=== PATIENT | female | born 1980 | race African-American/Black ===

== ENCOUNTER → 2018-07-27 09:21 | Outpatient (CLI) | payer MEDICARE | END | disposition home or self-care (01) | LOC: D.CT 09:00 | PROVIDERS: ATTEND Surgery | DX: N18.6 End stage renal disease (principal) ==

== ENCOUNTER 2018-08-17 09:21 | Outpatient (CLI) | payer MEDICARE ==
[~2018-08-17] VITALS: Ht 172.7 cm; Wt 79.0 kg
--- NOTE | ~2018-08-17 | HEMODYNAMI ---
PATIENT:KOBY RIVERA MEDICAL RECORD: [id number] : 76 [facility]ATION:[facility] ADMISSION DATE: 08/17/18 Generatedon:08/17/201815:25 Patient name: KOBY RIVERA Patient #: [id number] SSN: Tomi OB: 1980 Date of study: 08/17/2018 Page: Of Hemodynamic Procedure Report Patient Data Patient Demographics Procedure consent was obtained First Name: KOBY Gender: Female Last Name: NICOLE : 1980 Patient #: [id number] Age: 38 year(s) Race: Black Additional ID: [id number] Contact details Address: [address] State: [facility] Zip code: [address] Past Medical History Allergies Allergen Reaction Date Comments Reported Other allergy 08/17/2018 BETADINE Admission Admission Data Admission Date: 08/17/2018 Admission Time: 9:21 Procedure Procedure Types Cath Procedure Peripheral Cath Diagnostic Procedure Abd/Extremity Extremities Left Upper Ext. Arteriogram Procedure Description Procedure Date Procedure Date: 08/17/2018 Procedure Start Time: 14:45 Procedure Staff Name Function Tu Stein RT Scrub Khai Lord MD Performing Physician Luda Magana RT Monitor Fátima Rosas RN Nurse Procedure Data Cath Procedure Fluoroscopy Diagnostic fluoroscopy Total fluoroscopy Time: 3.3 time: 3.3 min min Diagnostic fluoroscopy Total fluoroscopy dose: 37 dose: 37 mGy mGy Contrast Material Contrast Material Type Amount (ml) Isovue 300 30 Entry Location Entry Primary Successful Side Size Upsize Upsize Entry Closure Succes sful Closure Location (Fr) 1 (Fr) 2 (Fr) Remarks Device Remarks Femoral Right 5 Fr artery Diagnostic catheters Device Type Used For End Catheter Placement Carisa Melton 5FR. 100CM catheter ([id number]) Procedure Medications Medication Administration Route Dosage Heparin Flush Bag added to field 2 bags (1000units/500ml NS) Lidocaine 1% added to field 20 Fentanyl I.V. 50 mcg Versed I.V. 1 mg Hydralizine I.V. 10 mg Versed I.V. 1 mg Fentanyl I.V. 50 mcg Hydralizine I.V. 10 mg Hemodynamics Rest Heart Rate: 66 (bpm) Pressure Samples Time Site Value (mmHg) Purpose Heart Use Rate(bpm) 14:55 AO 277/115(175) Snapshot 68 Snapshots Pre Cath Intra NCS Post Cath Vital Signs Time Heart Resp SPO2 etCO2 NIBP (mmHg) Rhythm Pain Sedation Rate (ipm) (%) (mmHg) Status Level (bpm) 14:36:51 64 1 100 37.9 Measuring NSR 0 (11) 10(A) , No pain 14:38:16 64 100 37.9 Time NSR 0 (11) 10(A) Exceeded , No pain 14:41:03 64 5 99 37.9 241/112(169) NSR 0 (11) 9(A) , No pain 14:46:03 68 5 100 37.9 Measuring NSR 0 (11) 9(A) , No pain 14:47:00 69 18 100 36.4 230/102(167) NSR 0 (11) 9(A) , No pain 14:51:51 69 8 100 33.4 241/112(182) NSR 0 (11) 8(A) , No pain 14:56:50 63 6 100 39.4 Measuring NSR 0 (11) 8(A) , No pain 14:56:52 63 5 100 39.4 241/98(165) NSR 0 (11) 8(A) , No pain 15:01:41 60 0 41.6 213/91(145) NSR 0 (11) 8(A) , No pain 15:06:17 64 15 42.4 177/65(121) NSR 0 (11) 8(A) , No pain 15:10:37 66 11 41.6 144/65(111) NSR 0 (11) 8(A) , No pain 15:14:55 69 11 42.4 132/56(99) NSR 0 (11) 8(A) , No pain 15:19:15 68 12 99 42.3 134/51(85) NSR 0 (11) 8(A) , No pain 15:24:14 70 6 38 Measuring NSR 0 (11) 8(A) , No pain 15:24:49 69 5 43.9 134/54(91) NSR 0 (11) 8(A) , No pain Medications Time Medication Route Dose Verified Delivered Reason Notes Ef fectiveness by by 14:22:44 Heparin Flush added 2 Khai Ridley used for Bag to bags Pop Lord procedure (1000units/500ml field MD SLAUGHTER NS) 14:39:40 Lidocaine 1% added 20ml Khai Ridley for local to vial Pop Lord anesthetic field MD SLAUGHTER 14:51:33 Fentanyl I.V. 50 Khai Fátima used for mcg Pop Rosas RN procedure 14:51:45 Versed I.V. 1 mg Khai Fátima for sedation Pop Rosas RN, MD 14:54:32 Hydralizine I.V. 10 mg Khai Fátima for Pop blanc MD 15:03:45 Versed I.V. 1 mg Khai Fátima for sedation Pop Rosas RN, MD 15:03:57 Fentanyl I.V. 50 Khai Fátima for sedation mcg Pop Rosas RN, MD 15:04:32 Hydralizine I.V. 10 mg Khai Fátima for Pop blanc MD Procedure Log Time Note 14:08:32 Tu Stein RT (R) (CV) sent for patient. Start room use. 14:08:37 Time tracking: Regular hours (M-F 7:00 - 5:00) 14:08:43 Plan of Care:Hemodynamics will remain stable., Cardiac rhythm will remain stable., Comfort level will be maintained., Respiratory function will remain adequate., Patient/ family verbilizes understanding of procedure., Procedure tolerated without complication., Recovers from procedure without complications.. 14:08:49 Patient received from Outpatients to IR Alert and oriented. Tansferred to table in Supine position. 14:08:51 Correct patient and procedure confirmed by team. 14:08:53 Signed procedure consent form obtained from patient. 14:08:56 Full Disclosure recording started 14:08:57 ECG and BP/O2 sat monitors applied to patient. 14:09:01 - 14:09:05 H&P Date Dictated: 08/17/2018 H&P Addendum completed by physician on day of procedure. (MUST COMPLETE FOR ALL OUTPATIENTS). 14:09:06 Pre-procedure instructions explained to patient. 14:09:07 Pre-op teaching completed and patient verbalized understanding. 14:09:08 Family in waiting room. 14:09:10 Patient NPO since Midnight. 14:09:55 Patient allergic to Other allergyBETADINE 14:10:03 Is the patient allergic to Iodine/contrast media? No. 14:10:09 Is patient on blood thinner?No 14:10:10 Patient diabetic? Yes. 14:10:13 If diabetic: On Metformin? No 14:10:14 - 14:10:18 Use device set IR Diagnostic 14:10:19 ACIST Syringe (72814) opened to sterile field. 14:10:20 ACIST Hand Control (67754) opened to sterile field. 14:10:20 ACIST Manifold (08745) opened to sterile field. 14:10:20 Bag Decanter (2002) opened to sterile field. 14:10:21 Sterile Angiographic Pack opened to sterile field. 14:10:21 Tegaderm 4 x 4 (1626W) opened to sterile field. 14:10:27 - 14:10:28 ----Pre-sedation anethsthesia assessment.---- 14:10:33 Previous problem with sedation/anesthesia? No ? 14:10:37 Snore? Yes 14:10:39 Sleep apnea? Yes 14:10:40 Deviated septum? No 14:10:43 Opens mouth fully? Yes 14:10:44 Sticks out tongue? Yes 14:10:49 Airway obstruction? No ? 14:10:56 Dentures? Yes OUT 14:11:23 IV IN RT.FOOT NORMAL SALINE RUNNING KVO 14::27 Sharps counted by scrub and verified by R.N. 14:11:27 Alarms reviewed by R. N. 14:11:30 Right groin area was prepped with chlora-prep and draped in sterile fashion 14:22:44 Heparin Flush Bag (1000units/500ml NS) 2 bags added to field was administered by Khai Lord MD; used for procedure; 14:34:53 Pre procedure: right dorsailis pedis pulse 1+ Palpable, but thready & weak; easily obliterated 14:35:03 Vital chart was started 14:35:04 Baseline sample Acquired. 14:39:40 Lidocaine 1% 20ml vial added to field was administered by Khai joyner MD; for local anesthetic; 14:43:56 Physician arrived 14:43:57 --------ALL STOP TIME OUT------ 14:44:00 Final Timeout: patient, procedure, and site verified with staff and physician. All members of the team are in agreement. 14:44:52 Right groin site verified by team. 14:44:58 Sedation plan: IV Moderate Sedation Medication:Versed, Fentanyl 14:45:02 Fire Safety Assessment: A--An alcohol-based skin anteseptic being used preoperatively., C--Open oxygen or nitrous oxide is being used. 14:45:11 Procedure started. 14:45:14 Local anesthetic to right femoral artery with Lidocaine 1% by Tu Stein RT (R) (CV).INITIAL ACCESS ONLY 14:45:23 Access obtained with 4Fr micropunture. 14:45:33 A 5 Fr sheath was inserted into the Right Femoral artery 14:45:38 BENTSON 145cm wire ([id number]) opened to sterile field. 14:45:38 SHEATH 5FR [place] (PUV029) opened to sterile field. 14:45:39 Micropuncture VSI 4FR kit opened to sterile field. 14:45:41 A Carisa Pichardostein 5FR. 100CM catheter ([id number]) was advanced over the wire and used for . 14:45:42 TUBING Contrast Injection High Pressure (ZQG941V) opened to sterile field. 14:51:33 Fentanyl 50 mcg I.V. was administered by Fátima Rosas RN; used for procedure; 14:51:45 Versed 1 mg I.V. was administered by Fátima Rosas RN; for sedation; 14:54:32 Hydralizine 10 mg I.V. was administered by Fátima Rosas RN; for hypertension; 14:54:41 Zero performed for pressure channel P1 15:03:45 Versed 1 mg I.V. was administered by Fátima Rosas RN; for sedation; 15:03:57 Fentanyl 50 mcg I.V. was administered by Fátima Rosas RN; for sedation ; 15:04:32 Hydralizine 10 mg I.V. was administered by Fátima Rosas RN; for hypertension; 15:06:55 EXOSEAL 5Fr (EX500) opened to sterile field. 15:07:56 Procedure ended.(Physican Out) 15:09:18 Fluoroscopy time 03.30 minutes. 15:09:21 Flurop Dose total: 37 15:09:21 Fluoroscopy dose: 37 mGy 15:09:32 Contrast amount:Isovue 300 30ml. 15:09:33 Sharps counted by scrub and verified by R.N. 15:09:35 Insertion/operative site no bleeding no hematoma. 15:09:38 Post-op/insertion site Right Femoral artery dressed using a 4 x 4 and Tegaderm. 15:09:42 Post right femoral artery:stable 15:09:43 Post Procedure Pulses reassessed and unchanged 15:09:44 Patient needs reinforcement of post procedure teaching. 15:09:45 Procedure and supply charges have been captured, reviewed, submitted an d are correct. 15:25:02 Report given to Outpatients. 15:25:05 Patient transfered to Outpatients with Bed. 15:25:44 Vital chart was stopped Device Usage Item Name Manufacture Quantity Catalog Hospital Part Current Minima l Lot# / Number Charge Number Stock Stock Serial# Code ACIST Syringe Acist 1 08570 243341 817975 735334 20 (40206) NebuAd ACIST Hand Acist 1 20707 400467 140668 670866 5 Control Medical (77388) Systems Inc ACIST Acist 1 50690 018793 921154 664345 5 Manifold Medical (08796) Systems Inc Bag Decanter Microtek 1 2001S 266457 81765 039951 5 (2001S) Medical Inc. Sterile Cardinal 1 [id number] 024187 233315 5 Angiographic Health Pack Tegaderm 4 x 3M 1 1626W 352161 658901 602718 5 4 (1626W) BENTSON 145cm Cook Medical 1 P30480 174631 761783 5 wire (H65125) SHEATH 5FR Terumo 1 OSC168 417357 056098 115941 5 [place] (NRR493) Micropuncture VSI VASCULAR 1 7266V 669703 265365 5 VSI 4FR kit SOLUTIONS Merit Impress Merit 1 [id number] 347832 519657 5 Melton Medical 5FR. 100CM catheter ([id number]) TUBING Merit 1 [id number] 023054 885844 700531 5 Contrast Medical Injection High Pressure ([id number]) EXOSEAL 5Fr Cardinal 1 EX500 545849 883595 156937 10 [id number] (EX500) Health Signature Audit [place] Stage Time Signature Unsigned Intra-Procedure 08/17/2018 Tu 3:25:41 PM [place] RT (R) (CV) Signatures Monitor : Luda Signature : [place] RT Date : Time : [id number] [place] [address]
[2018-08-17 10:16] LABS: EOSINOPHILS 9.7 % (0-7); HEMATOCRIT 35.5 % (36.0-48.0); HEMOGLOBIN 11.3 g/dL (12-16); LYMPHOCYTES 28.9 % (15-50); MCH 29.5 pg (26.0-34.0); MCHC 31.8 g/dL (31.0-37.0); MCV 92.7 fL (80.0-100.0); MEAN PLATELET VOLUME 11.1 fL (7.4-10.4); MONOCYTES 6.7 % (2-11); NEUTROPHILS 53.7 % (40-80); PLATELET COUNT 118 10x3/uL (130-400); RBC 3.83 10x6/uL (4.00-5.40); RDW 16.3 % (11.5-14.5)
[2018-08-17 10:22] LABS: APTT 26.4 SECONDS (22.8-39.4); PROTIME 12.7 SECONDS (11.6-15.0)
[2018-08-17 10:40] LABS: ANION GAP 12.7 mmol/L (8-16); CALCIUM 8.9 mg/dL (8.5-10.1); CARBON DIOXIDE 28.4 mmol/L (21.0-32.0); CREATININE - SERUM 7.8 mg/dL (0.6-1.3); POTASSIUM - SERUM 4.1 mmol/L (3.5-5.1)
[2018-08-17] MEDS ORDERED: NORVASC5 MG PO (10:45)
[2018-08-17] MEDS ORDERED: CATAPRES0.1 MG PO (10:45)
[2018-08-17] MEDS ORDERED: RENAGEL800 MG PO (10:46)
[2018-08-17] MEDS ORDERED: LANTUS INSULIN10 ML SC (10:46)
[2018-08-17] MEDS ORDERED: HYDRALAZINE HCL50 MG PO (10:47)
[2018-08-17 11:02] VITALS: Ht 172.7 cm; Wt 79.0 kg
--- NOTE | 2018-08-17 15:37 | NUR ---
REC'D FROM SPECIALS. FAMILY AT BEDSIDE. DRESSING CDI TO RIGHT GROIN AND PULSES PALPABLE. LEMON IGIUGIG SODA AND FINGERFOOD TRAY BROUGHT TO PATIENT.
== END 2018-08-17 19:05 | disposition home or self-care (01) ==
LOC: D.SP 09:21 → D.RAD 10:00 → D.SP 19:05
PROVIDERS: Radiology Diagnostic Radiology; ATTEND Surgery
DX: I72.8 Aneurysm of other specified arteries (principal); N18.6 End stage renal disease; Z01.812 Encounter for preprocedural laboratory examination

== ENCOUNTER 2019-02-20 06:47 | Day surgery (SDC) | payer MEDICARE ==
[~2019-02-20] VITALS: Ht 172.7 cm; Wt 78.5 kg
[~2019-02-20 06:47] MED LIST: CATAPRES0.1 MG PO; HYDRALAZINE HCL50 MG PO; LANTUS INSULIN10 ML SC; NORVASC5 MG PO; RENAGEL800 MG PO
[2019-02-20 07:12] LABS: BASOPHILS 0.7 % (0-2); EOSINOPHILS 5.6 % (0-7); HEMATOCRIT 35.6 % (36.0-48.0); LYMPHOCYTES 32.8 % (15-50); MCH 28.9 pg (26.0-34.0); MCHC 30.9 g/dL (31.0-37.0); MCV 93.4 fL (80.0-100.0); MONOCYTES 10.5 % (2-11); NEUTROPHILS 50.4 % (40-80); RBC 3.81 10x6/uL (4.00-5.40); RDW 13.4 % (11.5-14.5); WBC 4.1 10x3/uL (4.8-10.8)
[2019-02-20 07:24] LABS: ANION GAP 12.4 mmol/L (8-16); CARBON DIOXIDE 29.3 mmol/L (21.0-32.0); CREATININE - SERUM 7.6 mg/dL (0.6-1.3); POTASSIUM - SERUM 4.7 mmol/L (3.5-5.1)
[2019-02-20 07:29] LABS: PLATELET COUNT 169 10x3/uL (130-400)
[2019-02-20 07:48] LABS: PROTIME 12.7 SECONDS (11.6-15.0)
[2019-02-20 08:08] VITALS: BP 172/77; Ht 172.7 cm; Wt 78.5 kg
[2019-02-20 08:36] LABS: HCG SERUM NEGATIVE (NEGATIVE)
[2019-02-20] MEDS ORDERED: HYDROCODON-ACE1 EAC7 PO (16:39)
--- NOTE | 2019-02-20 17:02 | NUR ---
DC INSTRUCTIONS GIVEN TO PT. STATES UNDERSTANDING.
--- NOTE | 2019-02-20 17:14 | NUR ---
DC'D IV CATH FULLY INTACT.
--- NOTE | 2019-02-20 17:34 | NUR ---
PT LEFT UNIT VIA WC AT 1739
--- NOTE | 2019-02-23 08:11 | OP ---
PATIENT NAME: KOBY ASTORGA MEDICAL RECORD: [id number] :76 LOCATION:[facility] ADMISSION DATE: SURGEON: SHANNON LARA MD DATE OF OPERATION: 02/20/2019 REFERRING PHYSICIAN: Dr. 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 OPERATIONS PERFORMED: Implantation of new AV graft between the right distal radial artery and the proximal median antebrachial vein with runoff via the deep brachial veins and excision of aneurysmal fistula and insertion of a right internal jugular tunneled dialysis catheter using ultrasound and fluoroscopic guidance. SURGEON: Shannon Lara MD ANESTHESIA: Regional nerve block plus TIVA per [facility]. PREOPERATIVE NOTE: Ms. Astorga is a very nice 38-year-old -[place] female from [place], [place]. She is on chronic hemodialysis with a right forearm radiocephalic fistula. She has had this fistula now for several years and it has become quite aneurysmal and calcified with areas of severe stenosis between the cannulation aneurysms and she is brought to the operating room as an outpatient today to essentially remove and replace the fistula with an Acuseal graft for early access. Under anesthesia, regional nerve block and TIVA per [facility], the patient is prepped and draped in sterile manner. Incision was made and the radial artery fistula anastomosis was exposed and the radial artery controlled proximally and distally with Silastic loops and the fistula controlled also with Silastic loops. A proximal incision was made and the median antebrachial vein was exposed and dissected proximally. The communicating branch to the deep veins was ligated with 2-0 silk and the vein prepared for anastomosis. I chose a standard Acuseal graft and one end was bevelled and anastomosed end to end to the cuff of the remaining vein on the radial artery. This was done with running 6-0 Prolene and the anastomosis was further sealed with BioGlue and fibrillar, hemostatic oxidized cellulose. The new graft was placed in a subcutaneous tunnel on the medial aspect of the forearm and just distal to the antecubital space it was shortened and bevelled and anastomosed to the antebrachial vein. With release of the occluding clamps the fistula was occluded. The fistula was clamped and eventually transected and dissection of the venous outflow revealed that the superficial outflow from this antebrachial vein primarily the median cubital vein was totally obstructed and the runoff was running via the deep or perforating vein into the deep brachial veins. The previously placed 2-0 tie was removed and the graft then reanastomosed again with running 6-0 Prolene and at this time, excellent flow OPERATIVE REPORT [id number] KOBY ASTORGA was established in the new AV graft. I then extended the incision between the 2 incisions and sharply excised the aneurysmal fistula. It was necessary to remove also some of the thinned and calcified overlying skin. This resulted in a subsequent closure, which was I thought too close to the patient's new graft to allow its immediate use. The wound was irrigated with Ancef/gentamicin solution and infiltrated and irrigated with 0.25% Marcaine and the closure completed with interrupted inverted 3-0 Vicryl and running intracuticular 4-0 Monocryl. The wound was dressed with Xeroform gauze, 4 x 4 gauze, and then Kerlix roll gauze and Spandage. The patient was then re-prepped and draped and the right internal jugular vein was located with ultrasound and local anesthetic 1% lidocaine was infiltrated into subcutaneous tissues and skin and micropuncture technique used to insert a needle and guidewire under ultrasound guidance in the right internal jugular vein. Images were obtained for permanent documentation in the patient's chart. These at least were on the paper prints. Under fluoroscopy, a guidewire exchange was made and serial dilators passed and lastly a dilator peel-away introducer. I chose a 19 cm HemoSplit and made a small incision beneath the clavicle and pulled the new catheter through a subcutaneous tunnel from there up to the cervical incision where it was then inserted through the peel-away sheath. Under fluoroscopy its tip was positioned deeply in the right atrium. There were no apparent complications and there was nice curvature without any kinking or other problems. Both lumens were accessed and aspirated, free return of blood confirmed. They were then flushed with saline and then heparin locked, clamped and capped. The cervical incision was closed with interrupted inverted 3-0 Vicryl. Dermabond glue, Maxorb Ag, Tegaderm, and Cavilon skin prep. The catheter was sutured to the skin near the entry site with 2-0 Prolene and the catheter site dressed with a chlorhexidine Biopatch and standard sterile CVL plastic adherent dressing with Cavilon skin prep. At this point, the patient was then awakened and in stable condition returned to the recovery room. Blood loss during the operation was about 100 cc. None was replaced intraoperatively. Sponges, instruments and needles were accounted for and no drain was used. PLAN: The patient will be discharged to home this evening and she will resume her usual diet, medications and dialysis schedule in [place]. She will need to be dialyzed with her tunneled dialysis catheter for the next 2-3 weeks until the swelling and discomfort in her arm has abated to the point that it can be accessed and when access begins, it should be done with a standard Acuseal protocol. TRANSINT:[id number] Voice Confirmation ID: [id number] DOCUMENT ID: [id number] cc: [place], [place] [phone] OPERATIVE REPORT [id number] KOBY ASTORGA JAMES MD at 0811 CC: MATT GARDINER MD [phone] DICTATION DATE: 02/20/19 183 [employer] LEGAL ASSISTANT: 02/21/19 0012 [facility] 02/20/19 [facility] [address] [place] [address]
== END 2019-02-20 17:34 | disposition home or self-care (01) ==
LOC: D.OPS 06:47
PROVIDERS: Surgery; ATTEND Internal Medicine Nephrology
DX: T82.858A Stenosis of other vascular prosthetic devices, implants and grafts, initial encounter (principal); Y83.9 Surgical procedure, unspecified as the cause of abnormal reaction of the patient, or of later complication, without mention of misadventure at the time of the procedure; N18.6 End stage renal disease; Z99.2 Dependence on renal dialysis

== ENCOUNTER 2019-06-18 18:25 | Inpatient (IN) | payer MEDICARE ==
[~2019-06-18] VITALS: Ht 172.7 cm; Wt 83.2 kg
--- NOTE | ~2019-06-18 | HEMODYNAMI ---
PATIENT:KOBY RIVERA MEDICAL RECORD: [id number] : 76 LOCATION:D. D.2106 ADMISSION DATE: 06/18/19 Generatedon:06/20/201915:09 Patient name: KOBY RIVERA Patient #: [id number] SSN: Tomi OB: 1980 Date of study: 06/20/2019 Page: Of Hemodynamic Procedure Report Patient Data Patient Demographics Procedure consent was obtained First Name: KOBY Gender: Female Last Name: NICOLE : 1980 Patient #: [id number] Age: 38 year(s) Race: Black Additional ID: [id number] Contact details Address: [place] [address] State: [facility] Zip code: [address] Past Medical History Allergies Allergen Reaction Date Comments Reported Other allergy 08/17/2018 BETADINE Admission Admission Data Admission Date: 06/18/2019 Admission Time: 18:25 Room #: 2106 Procedure Procedure Types Cath Procedure Peripheral Cath Diagnostic Procedure Venography Extremity Right Upper Ext. Venagram Procedure Description Procedure Date Procedure Date: 06/20/2019 Procedure Start Time: 14:27 Procedure Staff Name Function Janay Hassan MD Performing Physician NADER HENSON RT Scrub Tu Stein RT Monitor Candy Cunningham RT Monitor Fátima Rosas RN Nurse Neha Reid RN Nurse Procedure Data Cath Procedure Fluoroscopy Diagnostic fluoroscopy Total fluoroscopy Time: 6.1 time: 6.1 min min Diagnostic fluoroscopy Total fluoroscopy dose: 87 dose: 87 mGy mGy Contrast Material Contrast Material Type Amount (ml) Isovue 300 45 Procedure Medications Medication Administration Route Dosage Heparin Flush Bag added to field 2 bags (1000units/500ml NS) Lidocaine 1% added to field 20 Versed I.V. 1 mg Fentanyl I.V. 50 mcg Hydralizine I.V. 20 mg Heparin Bolus I.V. 5000 units Versed I.V. 1 mg Fentanyl I.V. 50 mcg Hemodynamics Rest Heart Rate: 68 (bpm) Pressure Samples Time Site Value (mmHg) Purpose Heart Use Rate(bpm) 14:56 SVC 20/19(17) Snapshot 72 14:56 SVC 22/ (22) Snapshot 63 Snapshots Pre Cath Intra NCS Post Cath Vital Signs Time Heart Resp SPO2 etCO2 NIBP (mmHg) Rhythm Pain Sedation Rate (ipm) (%) (mmHg) Status Level (bpm) 14:11:57 68 16 97 0 189/100(165) NSR 0 (11) 10(A) , No pain 14:16:25 65 13 100 38.6 191/99(170) NSR 0 (11) 10(A) , No pain 14:20:55 66 14 100 37.1 200/100(172) NSR 0 (11) 10(A) , No pain 14:25:27 67 12 100 38.6 200/103(175) NSR 0 (11) 10(A) , No pain 14:29:29 66 10 100 38.6 212/96(172) NSR 0 (11) 8(A) , No pain 14:33:55 62 13 100 19.7 171/90(147) NSR 0 (11) 8(A) , No pain 14:38:22 66 30 100 34 151/84(137) NSR 0 (11) 8(A) , No pain 14:42:40 66 17 100 30.3 158/84(119) NSR 0 (11) 8(A) , No pain 14:47:00 67 15 100 37.9 147/80(122) NSR 0 (11) 8(A) , No pain 14:51:18 70 14 100 39.3 136/70(114) NSR 0 (11) 8(A) , No pain 14:55:34 71 16 100 37.1 133/74(110) NSR 0 (11) 8(A) , No pain 14:59:48 73 7 100 20.4 133/73(101) NSR 0 (11) 8(A) , No pain 15:04:04 71 16 100 38.6 126/66(98) NSR 0 (11) 8(A) , No pain 15:08:20 69 15 39.4 120/63(91) NSR 0 (11) 8(A) , No pain Medications Time Medication Route Dose Verified Delivered Reason Notes Ef fectiveness by by 14:16:03 Heparin Flush added 2 M J Long M J Long used for Bag to bags MD SLAUGHTER procedure (1000units/500ml field NS) 14:16:15 Lidocaine 1% added 20ml M J Long M J Long for local to vial MD SLAUGHTER anesthetic field 14:28:01 Versed I.V. 1 mg M J Long Fátima for sedation MD Ralph LOZA 14:28:13 Fentanyl I.V. 50 M J Long Fátima for sedation mcg MD Ralph LOZA 14:33:11 Hydralizine I.V. 20 mg M J Long Fátima for MD Ralph LOZA hypertension 14:43:31 Heparin Bolus I.V. 5000 M J Long Fátima Per units MD Ralph LOZA physician 14:56:00 Versed I.V. 1 mg M J Long Fátima for sedation MD Ralph LOZA 14:56:10 Fentanyl I.V. 50 M J Long Fátima for sedation mcg MD Ralph LOZA Procedure Log Time Note 13:58:58 Tu Stein RT (R) (CV) sent for patient. Start room use. 13:59:07 Time tracking: Regular hours (M-F 7:00 - 5:00) 13:59:12 Plan of Care:Hemodynamics will remain stable., Cardiac rhythm will remain stable., Comfort level will be maintained., Respiratory function will remain adequate., Patient/ family verbilizes understanding of procedure., Procedure tolerated without complication., Recovers from procedure without complications.. 13:59:18 Patient received from Med II to IR Alert and oriented. Tansferred to table in Supine position. 13:59:26 Signed procedure consent form obtained from patient. 13:59:27 Correct patient and procedure confirmed by team. 13:59:29 Full Disclosure recording started 13:59:30 - 13:59:33 H&P Date Dictated: 06/20/2019 Within 30 days and on chart.. 13:59:34 Pre-procedure instructions explained to patient. 13:59:35 Pre-op teaching completed and patient verbalized understanding. 13:59:36 Family in waiting room. 13:59:39 Patient NPO since Breakfast. 13:59:44 Is the patient allergic to Iodine/contrast media? No. 13:59:51 Use device set IR Diagnostic 13:59:53 Bag Decanter (2002S) opened to sterile field. 13:59:53 Sterile Angiographic Pack opened to sterile field. 13:59:54 Tegaderm 4 x 4 (1626W) opened to sterile field. 14:08:12 Is patient on blood thinner?Yes 14:08:22 ACC The patient was administered the following blood thiners within the last 24 hours: ACCHeparin 14:08:26 Patient diabetic? No. 14:08:29 - 14:08:30 ----Pre-sedation anethsthesia assessment.---- 14:08:32 Previous problem with sedation/anesthesia? No ? 14:08:33 Snore? Yes 14:08:34 Sleep apnea? Yes 14:08:36 Deviated septum? No 14:08:37 Opens mouth fully? No 14:08:38 Sticks out tongue? Yes 14:08:41 Airway obstruction? Yes ? 14:08:44 Dentures? No ? 14:08:56 IV patent on arrival in left forearm with 0.9% NaCl at [facility]. 14:09:01 Sharps counted by scrub and verified by R.N. 14:09:01 Alarms reviewed by R. N. 14:09:05 Right Arm area was prepped with chlora-prep and draped in sterile fashion 14:10:44 ECG and BP/O2 sat monitors applied to patient. 14:10:45 Vital chart was started 14:10:48 Baseline sample Acquired. 14:15:40 Baseline sample Acquired. 14:16:03 Heparin Flush Bag (1000units/500ml NS) 2 bags added to field was administered by Janay Hassan MD; used for procedure; Verbal order read back and verified. 14:16:15 Lidocaine 1% 20ml vial added to field was administered by Janay Hassan MD; for local anesthetic; Verbal order read back and verified. 14:25:51 Physician arrived 14::51 --------ALL STOP TIME OUT------ 14:25:52 Final Timeout: patient, procedure, and site verified with staff and physician. All members of the team are in agreement. 14:25:55 Right Arm site verified by team. 14:26:00 Fire Safety Assessment: A--An alcohol-based skin anteseptic being used preoperatively., C--Open oxygen or nitrous oxide is being used. 14:26:05 5) <15 or on dialysis Very severe, or end stage kidney failure. 14:26:11 Sedation plan: IV Moderate Sedation Medication:Versed, Fentanyl 14:26:52 Maximum allowable contrast dose (3.7 X eGFR X 0.75)13.8 ml. 14:27:07 Procedure started. 14:27:19 Local anesthetic to right arm with Lidocaine 1% by Janay Hassan MD.INITIA L ACCESS ONLY 14:27:23 Micropuncture VSI 4FR kit opened to sterile field. 14:27:24 DOC .035 wire ([id number]) opened to sterile field. 14:28:01 Versed 1 mg I.V. was administered by Fátima Rosas RN; for sedation; Verbal order read back and verified. 14:28:13 Fentanyl 50 mcg I.V. was administered by Fátima Rosas RN; for sedation ; Verbal order read back and verified. 14:29:30 SHEATH 6FR Helm (QOB053) opened to sterile field. 14:32:52 INFLATOR BasixTOUCH (KC9432) opened to sterile field. 14:33:11 Hydralizine 20 mg I.V. was administered by Fátima Rosas RN; for hypertension; Verbal order read back and verified. 14:35:40 Inflate balloon Inflation number: 1 A Evercross 8 x 4 x 135 Balloon ([id number]) was prepped and advanced across the Undefined1 , then inflated to 7 VALERI for 0:09 (min:sec) . 14:38:42 BECERRIL 260 wire (V40083) opened to sterile field. 14:38:43 GLIDE CATHETER 5FR ANGLED 65cm (CG507) opened to sterile field. 14:39:42 Inflate balloon Inflation number: 2 A Evercross 10 x 40 x 135 Balloon ([id number]) was prepped and advanced across the Undefined1 , then inflated to 10 VALERI for 0:11 (min:sec) . 14:43:31 Heparin Bolus 5000 units I.V. was administered by Fátima Rosas RN; Per physician; Verbal order read back and verified. 14:47:11 Protege GPS 12 x 40 X 120 Stent ([id number]) was deployed across Undefined1 . 14:55:21 Zero performed for pressure channel P1 14:55:41 Zero performed for pressure channel P1 14:55:45 Zero performed for pressure channel P1 14:55:52 Zero performed for pressure channel P1 14:56:00 Versed 1 mg I.V. was administered by Fátima Rosas RN; for sedation; Verbal order read back and verified. 14:56:10 Fentanyl 50 mcg I.V. was administered by Fátima Rosas RN; for sedation ; Verbal order read back and verified. 14:57:55 Procedure ended.(Physican Out) 14:58:26 Fluoroscopy time 06.10 minutes. 14:58:30 Fluoroscopy dose: 87 mGy 14:58:30 Flurop Dose total: 87 15:02:58 Contrast amount:Isovue 300 45ml. 15:03:06 Procedure and supply charges have been captured, reviewed, submitted an d are correct. 15:03:12 Report given to Datical II. 15:09:19 Vital chart was stopped Intervention Summary Intervention Notes Time ActionType Lesion and Equipment Used Action# Pressure Duration Attributes 14:35:40 Inflate Undefined1 Evercross 8 x 4 x 1 7 00:09 balloon 135 Balloon ([id number]) 14:39:42 Inflate Undefined1 Evercross 10 x 40 2 10 00:11 balloon x 135 Balloon ([id number]) 14:47:11 Deploy self Undefined1 Protege GPS 12 x 1 expanding 40 X 120 Stent stent ([id number]) Device Usage Item Name Manufacture Quantity Catalog Number Hospital Part Curr ent Minimal Lot# / Charge Number Stock Stock Serial# Code Bag Decanter Microtek 1 [id number] 21344 9849 03 5 (2002S) Med[employer]. Sterile Cardinal 1 [id number] 676175 7854 49 5 Angiographic Pack Health Tegaderm 4 x 4 3M 1 1626W 443611 249111 0816 03 5 (1626W) Micropuncture VSI VSI VASCULAR 1 7266V 560294 7284 08 5 4FR kit SOLUTIONS DOC .035 wire Cook [employer] 1 N00183 901852 9395 01 5 ([id number]) SHEATH 6FR Terumo 1 NFG876 724617 614094 6500 06 40 Helm ([id number]) INFLATOR Merit 1 DZ2332 209366 817480 4679 64 5 BasDom[employer] Medical (EU6106) Evercross 8 x 4 x Medtronic 1 [id number] 553577 523186 1679 87 5 135 Balloon ([id number]) BECERRIL 260 wire [employer] 1 D77885 255448 88884 9994 78 5 ([id number]) GLIDE CATHETER 5FR Terumo 1 CG507 908088 4896 37 5 ANGLED 65cm (CG507) Evercross 10 x 40 Medtronic 1 [id number] 001092 709549 5385 71 5 x 135 Balloon ([id number]) Protege GPS 12 x Medtronic 1 [id number]-[id number] 107904 683367 8895 96 5 [id number] 40 X 120 Stent 0 [id number] ([id number]) [id number] Signature Audit [place] Stage Time Signature Unsigned Intra-Procedure 06/20/2019 Candy Cunningham 3:09:14 PM RT(R) [facility] [address] [place] [address]
[~2019-06-18 18:25] MED LIST changes: +HYDROCODON-ACE1 EAC7 PO
--- NOTE | 2019-06-18 19:30 | NUR ---
PT IS A DIRECT ADM. PT ARRIVED @ SHIFT CHANGE. PT AFVSS. NO S/S OF RT DISTRESS. PT DENIES PAIN AT THIS TIME. R.ARM RESERVE FOR R.FA FISTULA. +BRUIT AND THRILL. ADMISSION ASSESSMENT COMPLETED. PT DENIES ANY FURTHER NEEDS AT THIS TIME. WILL CTM.
[2019-06-18] MEDS ORDERED: RENVELA800 MG PO (19:53)
[2019-06-18] MEDS ORDERED: CYCLOBENZAPRINE10 MG PO (19:54)
[2019-06-18 19:55] LABS: BASOPHILS 0.5 % (0-2); EOSINOPHILS 9.1 % (0-7); HEMATOCRIT 34.3 % (36.0-48.0); HEMOGLOBIN 10.9 g/dL (12-16); LYMPHOCYTES 33.2 % (15-50); MCHC 31.8 g/dL (31.0-37.0); MCV 85.1 fL (80.0-100.0); MONOCYTES 7.5 % (2-11); NEUTROPHILS 49.7 % (40-80); RBC 4.03 10x6/uL (4.00-5.40); RDW 13.7 % (11.5-14.5); WBC 3.9 10x3/uL (4.8-10.8)
[2019-06-18 19:57] LABS: PLATELET COUNT 108 10x3/uL (130-400)
[2019-06-18 20:11] LABS: INR 1.04 (0.85-1.17); PROTIME 13.6 SECONDS (11.6-15.0)
[2019-06-18 20:19] LABS: ALBUMIN 3.4 g/dL (3.4-5.0); ANION GAP 17.1 mmol/L (8-16); BILIRUBIN - TOTAL 0.4 mg/dL (0.2-1.3); CALCIUM 7.2 mg/dL (8.5-10.1); CARBON DIOXIDE 25.4 mmol/L (21.0-32.0); POTASSIUM - SERUM 5.5 mmol/L (3.5-5.1); PROTEIN - SERUM 7.2 g/dL (6.4-8.2)
--- NOTE | 2019-06-18 20:35 | NUR ---
CALLED DR. LARA ABOUT HEPARIN DRIP ORDERED. HE STATES DRIP TO BE INFUSE 500U/HR CONTINUOUS. MED REC COMPLTED. PIV PLACE IN L.HAND X1 STICK. PT TOLERATE WELL. HEP INFUSING @5MLS/HR. SANDWICH PROVIDED PER PT'S REQUEST. PT DENIES ANY FURTHER NEEDS AT THIS TIME. WILL CPOC. CL WITHIN REACH, BED IN LOW, SR UP X2.
[2019-06-18 20:36] VITALS: BP 148/86
[2019-06-18 23:43] VITALS: BP 148/86; BMI 29.2
[2019-06-19 00:28] VITALS: BP 90/56
[2019-06-19 06:30] VITALS: BP 147/80
[2019-06-19 08:34] VITALS: BP 138/68
[2019-06-19 11:50] VITALS: BP 162/85
[2019-06-19 13:32] VITALS: Ht 172.7 cm; Wt 83.2 kg
[2019-06-19 16:04] VITALS: BP 139/72
--- NOTE | 2019-06-19 18:22 | NUR ---
PT WITH STATED ALLERGY TO BETADINE. SHE SAYS ITS JUST TOPICAL AND ITCHES. HAS PREVIOUSLY USED CONTRAST DYE FOR PROCEDURES WITHOUT PROBLEMS. IMAGING NOTIFIED.
--- NOTE | 2019-06-19 19:40 | NUR ---
PT DENIES NEEDS AT THIS TIME PT EXPRESSES DESIRE TO NAP BED IS LOW AND LOCKED CALL LIGHT IS WITH PT
[2019-06-19 21:03] VITALS: BP 127/67
--- NOTE | 2019-06-19 23:05 | NUR ---
PT WENT TO DIALYSIS AROUND 2044 AND REMAINS THERE AT THIS TIME
[2019-06-20] VITALS (10 sets, daily range): BP systolic 100–157; BP diastolic 57–79
--- NOTE | 2019-06-20 00:29 | NUR ---
ASSISTED PT BACK FROM DIALYSIS TO ROOM SEEN TO NEEDS CALL LIGHT PROVIDED AND BED LOW AND LOCKED
--- NOTE | 2019-06-20 02:10 | NUR ---
I have reviewed this patient and I concur with the Shift Assessment completed by the Licensed Practical Nurse today this shift.
[2019-06-20 05:19] LABS: BASOPHILS 0.6 % (0-2); EOSINOPHILS 7.7 % (0-7); HEMOGLOBIN 10.1 g/dL (12-16); MCH 26.9 pg (26.0-34.0); MCHC 31.6 g/dL (31.0-37.0); MCV 85.3 fL (80.0-100.0); MEAN PLATELET VOLUME 11.1 fL (7.4-10.4); MONOCYTES 10.9 % (2-11); NEUTROPHILS 44.8 % (40-80); PLATELET COUNT 114 10x3/uL (130-400); RBC 3.75 10x6/uL (4.00-5.40); RDW 13.8 % (11.5-14.5); WBC 3.4 10x3/uL (4.8-10.8)
[2019-06-20 05:41] LABS: PROTIME 13.1 SECONDS (11.6-15.0)
[2019-06-20 05:43] LABS: APTT 30.1 SECONDS (22.8-39.4)
[2019-06-20 05:46] LABS: ANION GAP 15.2 mmol/L (8-16); CALCIUM 7.5 mg/dL (8.5-10.1); CARBON DIOXIDE 27.2 mmol/L (21.0-32.0); CREATININE - SERUM 9.9 mg/dL (0.6-1.3)
[2019-06-20 05:49] LABS: POTASSIUM - SERUM 4.4 mmol/L (3.5-5.1)
--- NOTE | 2019-06-20 08:11 | NUR ---
RESTING IN BED, NO DISTRESS NOTED, NPO FOR SURGERY, CONT TO MONITOR
--- NOTE | 2019-06-20 13:55 | NUR ---
PT TAKEN TO IR PER BED, FAMILY AT BEDSIDE
--- NOTE | 2019-06-20 15:30 | NUR ---
RETURNED TO UNIT FROM IR, DRESSING TO RIGHT UPPER ARM DRY AND INTACT, PT TO REST RIGHT ARM FOR 2 HRS, IV IN L HAND, FAMILY IN ROOM
[2019-06-21] VITALS: BP 116/54
[2019-06-21 04:00] VITALS: BP 132/69
--- NOTE | 2019-06-21 08:03 | NUR ---
PT RECEIVED ASLEEP IN BED, AROUSES TO VOICE. RIGHT UPPER ARM DRESSING IS CLEAN AND DRY. POSSIBLE DC HOME TODAY.
[2019-06-21] MEDS ORDERED: PLAVIX75 MG PO (09:48)
[2019-06-21] MEDS ORDERED: ASPIRIN EC81 M1 PO (09:49)
--- NOTE | 2019-06-21 10:22 | MORECARE ---
CASE MANAGEMENT DISCHARGE SUMMARY PATIENT: KOBY RIVERA UNIT: [id number] ADM DATE: 06/18/19 AGE: 38 : [birth year] SEX: F ROOM/BED: D.2106 AUTHOR: JOHN,DOC PHYSICIAN: REFERRING PHYSICIAN: SHANNON LARA MD DATE OF SERVICE: 06/21/19 Discharge Plan Patient Name: KOBY RIVERA Facility: [facility]:[place] : 1980 Planned Disposition: Home Anticipated Discharge Date: Discharge Date: Expected LOS: Initial Reviewer: [email or web address] Initial Review Date: 06/21/2019 Generated: 06/21/19 11:21 am Comments DCP- Discharge Planning Updated by [email or web address]: Karissa Mejia on 06/21/19 9:[address] Patient Name: KOBY RIVERA Admission Status: Elective Accout number: [id number] Admission Date: 06-18-2019 : 1980 Admission Diagnosis: Attending: SHANNON LARA Current LOS: 3 Anticipated DC Date: Planned Disposition: Home Primary Insurance: MEDICARE A & B Discharge Planning Comments: CM MET WITH PATIENT AFTER OBTAINING VERBAL CONSENT. PATIENT PLANS TO DC TO HOME TODAY. DENIES NEED FOR REHAB, HH OR EQUIPMENT. STATES FAMILY MEMBER TO HELP DESK MANAGER TODAY AFTER DC. STATES SHE SHOULD DC AFTER DIALYSIS TODAY. Production Control Analyst: Karissa Mejia DCPIA - Discharge Planning Initial Assessment Updated by [email or web address]: Karissa Mejia on 06/21/19 10:17 am * Is the patient Alert and Oriented? Yes * PCP MATT * Pharmacy [facility] [place] * Preadmission Environment Home with Family * ADLs Independent * Additional services required to return to the preadmission environment? No * Can the patient safely return to the preadmission environment? Yes * Has this patient been hospitalized within the prior 30 days at any hospital? No Coverage Notice Reviewer: [id number] - Karissa Mejia Notice Issued Date-Time: 06/21/2019 10:20 Notice Type: IM Discharge Notice Notice Delivered To: Relationship to Patient: Report Manager Name: Delivery Method: HAND - Hand Delivered [place] Days: Prior Verbal Notification: Recipient Understood Notice: Yes Recipient Signature: Yes Med Rec Note Co-signed by Attending: Coverage Notice Comment: Patient Name: KOBY RIVERA Page [id number] at 1022 All edits/amendments must be made on the electronic document DICTATION DATE: 06/21/19 1021 MACHINE SKIVER: RUSS 06/21/19 1021 RPT#: [id number] DC DATE: STATUS: ADM IN [facility] [address] [place] [address] END OF REPORT
[2019-06-21 10:59] VITALS: BP 113/74
--- NOTE | 2019-06-21 13:44 | NUR ---
Nutrition Follow-up: Appetite slowly improving. Denies N/V/C/D. HD yesterday (-2000 mL). Diet: Renal ADA Wt: 183# (06/20); 197# (06/19) Last BM: 06/20 per pt Labs reviewed Meds noted: Renagel, Protonix -Continue current diet as tolerated. -Encourage PO intake. -Monitor wt; noted daily wts ordered. -RD following.
--- NOTE | 2019-06-21 16:10 | NUR ---
I CALLED [facility] [place] AND TALKED TO REFUGIO-PHARMACIST. I CALLED PLAVIX 75 MG #30 WITH 6 REFILLS.
--- NOTE | 2019-06-21 16:30 | NUR ---
DC PAPERWORK GONE OVER AND SIGNED WITH PT. PIV REMOVED, CATH TIP FULLY INTACT. ALL QUESTIONS ANSWERED. ALL BELONGINGS TAKIN FROM ROOM. PT WHEELED TO FRONT ENTRANCE VIA WHEELCHAR.
--- NOTE | 2019-06-22 08:32 | MORECARE ---
CASE MANAGEMENT DISCHARGE SUMMARY PATIENT: KOBY RIVERA UNIT: [id number] ADM DATE: 06/18/19 AGE: 38 : [birth year] SEX: F ROOM/BED: D.2106 AUTHOR: JOHNDOC PHYSICIAN: REFERRING PHYSICIAN: SHANNON LARA MD DATE OF SERVICE: 06/22/19 Discharge Plan Patient Name: KOBY RIVERA Facility: [facility]:[place] : 1980 Planned Disposition: Home Anticipated Discharge Date: Discharge Date: 06/21/2019 Expected LOS: Initial Reviewer: [email or web address] Initial Review Date: 06/21/2019 Generated: 06/22/19 9:31 am Comments DCP- Discharge Planning Updated by [email or web address]: Karissa Mejia on 06/21/19 9:[address] Patient Name: KOBY RIVERA Admission Status: Elective Accout number: [id number] Admission Date: 06-18-2019 : 1980 Admission Diagnosis: Attending: SHANNON LARA Current LOS: 3 Anticipated DC Date: Planned Disposition: Home Primary Insurance: MEDICARE A & B Discharge Planning Comments: CM MET WITH PATIENT AFTER OBTAINING VERBAL CONSENT. PATIENT PLANS TO DC TO HOME TODAY. DENIES NEED FOR REHAB, HH OR EQUIPMENT. STATES FAMILY MEMBER TO MANAGER HOSPITAL TODAY AFTER DC. STATES SHE SHOULD DC AFTER DIALYSIS TODAY. Watch Repairer: Karissa Mejia DCPIA - Discharge Planning Initial Assessment Updated by [email or web address]: Karissa Mejia on 06/21/19 10:17 am * Is the patient Alert and Oriented? Yes * PCP MATT * Pharmacy [facility] [place] * Preadmission Environment Home with Family * ADLs Independent * Additional services required to return to the preadmission environment? No * Can the patient safely return to the preadmission environment? Yes * Has this patient been hospitalized within the prior 30 days at any hospital? No Coverage Notice Reviewer: [id number] - Karissa Mejia Notice Issued Date-Time: 06/21/2019 10:20 Notice Type: IM Discharge Notice Notice Delivered To: Relationship to Patient: Parts Washer Name: Delivery Method: HAND - Hand Delivered Trinidad Days: Prior Verbal Notification: Recipient Understood Notice: Yes Recipient Signature: Yes Med Rec Note Co-signed by Attending: Coverage Notice Comment: Last DP export: 06/21/19 9:21 a Patient Name: KOBY RIVERA Page [id number] at 0832 All edits/amendments must be made on the electronic document DICTATION DATE: 06/22/19830 FRONTEND ENGINEER: RUSS 06/22/19830 RPT#: [id number] DC DATE:06/21/19 STATUS: DIS IN [facility] [address] [place] [address] END OF REPORT
== END 2019-06-21 17:08 | disposition home or self-care (01) | DRG 314 ==
LOC: D.M2 18:25
PROVIDERS: Radiology Vascular & Interventional Radiology; ADMIT Surgery; ATTEND Surgery
PROC: 5A1D70Z Performance of Urinary Filtration, Intermittent, Less than 6 Hours Per Day (ICD-10-PCS; principal; 2019-06-19)
DX: T82.858A Stenosis of other vascular prosthetic devices, implants and grafts, initial encounter (principal); N18.6 End stage renal disease; I12.0 Hypertensive chronic kidney disease with stage 5 chronic kidney disease or end stage renal disease; Y84.9 Medical procedure, unspecified as the cause of abnormal reaction of the patient, or of later complication, without mention of misadventure at the time of the procedure; E11.22 Type 2 diabetes mellitus with diabetic chronic kidney disease

== ENCOUNTER 2020-07-29 05:23 | Day surgery (SDC) | payer MEDICARE ==
[~2020-07-29] VITALS: Ht 172.7 cm; Wt 86.2 kg
--- NOTE | ~2020-07-29 | OP ---
PATIENT NAME: KOBY RIVERA MEDICAL RECORD: [id number] :[birth year] LOCATION:DTANNER ADMISSION DATE: SURGEON: SHANNON LARA MD DATE OF OPERATION: 07/29/2020 REFERRING PHYSICIAN: Dr. Gardiner of [place]. PREOPERATIVE DIAGNOSIS: End-stage renal disease and dependence on hemodialysis. POSTOPERATIVE DIAGNOSES: End-stage renal disease and dependence on hemodialysis, right subclavian vein stenosis. OPERATION PERFORMED: Ultrasound-guided access of the proximal right brachial vein and performance of a superior vena cavogram followed then by implantation of an Artegraft loop in the upper arm, originating from the proximal brachial artery and outflow via the right basilic vein. SURGEON: Shannon Lara MD ANESTHESIA: General plus regional nerve block per ORACLE DEVELOPER. PREOPERATIVE NOTE: This young lady has had end-stage renal disease and has lost several dialysis accesses. 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 She was brought to the operating room at this time to implant an AV graft in her right upper extremity and perform a vena cavogram. This is necessary due to her history of right subclavian vein stenosis and placement of a stent about 2 years ago. DESCRIPTION OF PROCEDURE: Under anesthesia, the patient was placed in supine position, prepped and draped in a sterile manner. A right brachial vein in the upper third of the arm was accessed with a micropuncture technique using continuous ultrasound guidance with image documentation. The contrast was injected via the micropuncture catheter and the axillary and subclavian, brachiocephalic and superior vena cava and right atrium were imaged. The patient was seen to have a deformed stent in the right subclavian and a rather tortuous appearing subclavian vein within the stent, but without any effective apparent stenosis. I saw no stenosis of the brachiocephalic or superior vena cava. I opted to go ahead and place a graft in the right arm realizing that the proximal venous stenosis will be a problem and will require frequent surveillance fistulograms. I made an incision on the medial aspect of the upper arm and exposed the brachial artery and proximal basilic vein. These were controlled with Silastic loops and if needed vascular clamps. I chose an Artegraft, which was rinsed and then bevelled and the artery occluded and opened for a short distance of about 7 or 8 mm. The artery was flushed proximally and distally with heparinized saline and an rmw-zw-cmmpx to vjtq-wu-[id number] anastomosis performed with a running 6-0 Prolene. That suture line was hemostatic. When completed, the graft was placed in a superficial subcutaneous tunnel, which passed downward and laterally in the arm and then came back up the medial aspect of the arm to the incision where it was shortened and beveled. The vein was occluded and opened proximally and distally, flushed with heparinized saline as the artery had been and an [id number]-ej-gknnr to pxpr-zd-ytux anastomosis performed with running 6-0 Prolene. When I was completed and the OPERATIVE REPORT [id number] NICOLE,ARQUENCE occluding loops and clamps were released, excellent flow developed within the new AV graft and the suture lines were hemostatic. There was continuous pulsatile Doppler flow in the proximal brachial artery and within the graft itself and preservation of a high resistance pulsatile flow signal in the distal brachial artery. There was a good flow signal in the right ulnar artery at the wrist and in the palmar arch. Flow in the radial artery at the wrist was quite dampened. The wounds were irrigated with saline and then closed with interrupted inverted 3-0 Vicryl and the skin closed with running intracuticular 4-0 Stratafix. The incisions were sealed and further closed with Dermabond glue and dressed with Maxorb AG, Tegaderm and Cavilon skin prep. She was then awakened and in stable condition taken to the recovery room. Blood loss during the procedure was about 5 mL, unreplaced. No drain was used. Sponges, instruments and needles were accounted for and no surgical specimen was submitted for histopathology. PLAN: The patient will go home later today and return to my office next week for followup visit. I will remove her dressing at that time. Until then, she is to keep the dressing dry and intact. She will continue all of her same medications. I will likely start her on Plavix next week. She is to continue her same routine dialysis schedule diet and activities. We will await 2 weeks before first accessing her Artegraft and then assuming it works well I will remove the femoral tunneled catheter with minimal delay. I believe that she will need frequent followup fistulograms and I would like to have the first one scheduled at [facility] in 3 months. I think 6 or 3 month intervals will be necessary with angioplasties as required. TRANSINT:[id number] Voice Confirmation ID: [id number] DOCUMENT ID: [id number] cc: Robert Mena in [place], SHANNON WHITE MD CC: MATT GARDINER MD [id number] DICTATION DATE: 07/29/20 1230 CLOTH GRADER SUPERVISOR: 07/29/20 1836 [facility] 07/29/[address] [facility] [address] [place] [address]
[~2020-07-29 05:23] MED LIST changes: +ASPIRIN EC81 M1 PO; +CYCLOBENZAPRINE10 MG PO; +LEVEMIR FL100 UNIT/1 SC; +PLAVIX75 MG PO; +RENVELA800 MG PO
[2020-07-29 06:21] LABS: ANION GAP 19.2 mmol/L (8-16); CARBON DIOXIDE 24.3 mmol/L (21.0-32.0); CREATININE - SERUM 9.2 mg/dL (0.6-1.3); POTASSIUM - SERUM 5.5 mmol/L (3.5-5.1)
[2020-07-29 06:24] LABS: INR 1.06 (0.85-1.17); PROTIME 12.8 SECONDS (11.6-15.0)
[2020-07-29 06:43] LABS: BASOPHILS 1.1 % (0-2); HEMATOCRIT 35.7 % (36.0-48.0); HEMOGLOBIN 10.7 g/dL (12-16); LYMPHOCYTE ABS# 1.27 10x3/uL (1.18-3.74); MCH 27.1 pg (26.0-34.0); MCV 90.4 fL (80.0-100.0); MEAN PLATELET VOLUME 11.6 fL (7.4-10.4); MONOCYTES 11.9 % (2-11); NEUTROPHIL ABS# 2.54 10x3/uL (1.56-6.13); RBC 3.95 10x6/uL (4.00-5.40); RDW 14.4 % (11.5-14.5); WBC 4.7 10x3/uL (4.8-10.8)
[2020-07-29 06:44] LABS: PLATELET COUNT 129 10x3/uL (130-400)
[2020-07-29 07:42] VITALS: BP 154/80; Ht 172.7 cm; Wt 86.2 kg
[2020-07-29] MEDS ORDERED: TOPROL XL100 MG PO (08:00)
[2020-07-29] MEDS ORDERED: CHRONULAC30 ML PO (08:04)
== END 2020-07-29 13:50 | disposition home or self-care (01) ==
LOC: D.OPS 05:23
PROVIDERS: ATTEND Surgery
DX: N18.6 End stage renal disease (principal); Z99.2 Dependence on renal dialysis; I82.B21 Chronic embolism and thrombosis of right subclavian vein; I10 Essential (primary) hypertension